=== PATIENT | female | born 1985 | race Caucasian/White ===

== ENCOUNTER 2020-05-31 17:16 | Outpatient (REF) | payer OTHER, SELFPAY | END 2020-05-31 17:17 | disposition home or self-care (01) | LOC: HO.LAB 17:16 | PROVIDERS: Visit Provider Internal Medicine | DX: Z20.828 Contact with and (suspected) exposure to other viral communicable diseases (principal) | CPT/HCPCS: C9803; U0003 ==

== ENCOUNTER 2020-11-02 09:24 | Outpatient (REF) | payer OTHER, SELFPAY ==
--- NOTE | ~2020-11-02 | FL_ITS ---
EXAMINATION: XR UPPER GI SERIES CLINICAL INFORMATION: Unspecified abdominal pain. COMPARISON: None FLUOROSCOPY TIME: 1.4 minutes TECHNIQUE: Swallowing examination of the cervical esophagus was performed in the lateral position with self administration of thick, high density barium. Following the self administration of effervescent granules, thoracic esophagography was performed with the patient in upright and recumbent positions with thin barium. A 12.7 mm barium tablet was also administered. A double contrast examination of the stomach and duodenum was performed. Fluoroscopic evaluation was performed and multiple spot images were obtained. A dedicated prone PA view of the abdomen was obtained. DOSE AREA PRODUCT: 21.56 uGy-m2 (microgray-meter squared) FINDINGS: Pharynx and cervical esophagus: Examination demonstrates normal motility without stricturing, diverticula, or obstruction. No significant pooling of contrast material in the valleculae or piriform sinuses. No cricopharyngeal abnormalities are noted. The pharynx and cervical spine are normal in appearance. Thoracic esophagus: Normal esophageal motility was observed during swallowing. There was no evidence of esophageal mass, ulceration, or stricture. No hiatal hernia was noted. There is no evidence of gastroesophageal reflux demonstrated on this exam, neither spontaneous nor with the patient performing a Valsalva maneuver. Barium pill was noted to pass through the esophagus and into the lumen of the stomach without delay. Stomach and duodenum: Barium flows easily through a normal appearing stomach, duodenal bulb, and sweep. No gastric or duodenal ulcers are identified. No findings of inflammation. Contrast material extends into the jejunum and ileum on the dedicated PA view without appreciable focal thickening or abnormal fold caliber. Stomach is normal in appearance on this view. Lung bases are clear. FL/FL upper GI series IMPRESSION: Normal upper GI series without appreciable abnormalities in the esophagus, stomach, and small bowel. No gastric ulcers are identified.
[2020-11-02 10:18] LABS: MANUAL DIFF FLAG NO
[2020-11-02 10:41] LABS: Basophils Percent Auto 0.4 % (0-2); Eosinophils Absolute Auto 0.2 X10*3/uL (0.0-0.4); Eosinophils Percent Auto 2.8 % (0-4); Hematocrit 38.6 % (37-47); Hemoglobin 12.8 g/dl (12.0-16.0); Imm Gran Abs Auto 0.01 X10*3/uL (0.00-0.03); Imm Gran Pct Auto 0.2 % (0.0-0.4); Lymphocytes Absolute Auto 2.2 X10*3/uL (1.2-4.9); Lymphocytes Percent Auto 41.7 % (20-40); Mean Corpuscular HGB Conc 33.2 g/dl (31.0-35.0); Mean Corpuscular Volume 90.4 fL (80-98); Mean Platelet Volume 11.4 fL (9.4-12.3); Monocytes Absolute Auto 0.5 X10*3/uL (0.1-1.2); Neutrophils Absolute Auto 2.4 X10*3/uL (2.0-8.3); Neutrophils Percent Auto 44.9 % (45-73); Platelet Count 208 X10*3/uL (160-400); Red Blood Count 4.27 X10*6/uL (4.20-5.50); Red Cell Distribution Width 12.1 % (11.0-16.0); White Blood Count 5.3 X10*3/uL (4.8-10.8)
[2020-11-02 10:51] LABS: Alanine Aminotransferase 11 U/L (0-31); Albumin Level 4.3 g/dL (3.5-5.0); Alkaline Phosphatase 55 U/L (39-117); Anion Gap 12 (12-20); Aspartate Amino Transferase 13 U/L (5-31); Bilirubin Total 0.9 mg/dL (0.0-1.0); Blood Urea Nitrogen 14 mg/dL (9-16); Calcium 9.1 mg/dL (8.4-10.2); Carbon Dioxide 24 mmol/L (22-29); Chloride 107 mmol/L (96-108); Cholesterol 139 mg/dL; Estimated Glomerular Filt Rate > 60; Glucose Fasting 99 mg/dL (60-99); HDL Cholesterol 43 mg/dL; LDL Cholesterol Calculated 86 mg/dl; Sodium 139 mmol/L (135-145); Triglycerides 50 mg/dL
[2020-11-02 11:14] LABS: Thyroid Stimulating Hormone 5.19 uIU/mL (0.32-4.0)
== END 2020-11-02 09:25 | disposition home or self-care (01) ==
LOC: HO.XRAY 09:24
PROVIDERS: PCP Internal Medicine; Visit Provider Internal Medicine
DX: R10.9 Unspecified abdominal pain (principal); E66.9 Obesity, unspecified
CPT/HCPCS: 36415; 74240; 80053; 80061; 84443; 85025

== ENCOUNTER → 2020-11-30 11:48 | Outpatient (BNVA) | payer OTHER, SELFPAY | PROVIDERS: PCP Internal Medicine; Visit Provider Dietitian, Registered | DX: E66.9 Obesity, unspecified (principal); Z68.31 Body mass index [BMI] 31.0-31.9, adult | CPT/HCPCS: 97802 ==

== ENCOUNTER → 2020-12-06 13:03 | Outpatient (BNVA) | payer OTHER, SELFPAY | PROVIDERS: PCP Internal Medicine; Referring Provider Internal Medicine; Visit Provider Nurse Practitioner ==

== ENCOUNTER 2020-12-19 08:38 | Outpatient (REF) | payer OTHER, SELFPAY ==
--- NOTE | ~2020-12-19 | US_ITS ---
EXAMINATION: US ABDOMEN COMPLETE CLINICAL INFORMATION: Epigastric pain. COMPARISON: None TECHNIQUE: Real-time imaging of the abdominal viscera. FINDINGS: PANCREAS: Normal. ABDOMINAL AORTA: The proximal, mid, and distal segments are normal in caliber. INFERIOR VENA CAVA: Visualized portions are normal. LIVER: Normal. The liver is normal in size. The liver contour is normal. Parenchymal echogenicity is normal. No focal hepatic lesion. There is no intrahepatic biliary duct dilatation seen. GALLBLADDER: The gallbladder is physiologically distended without evidence of stones, sludge, polyps, wall thickening or pericholecystic fluid. The veterinary technologist reports the patient is tender over the gallbladder. COMMON BILE DUCT: Normal in caliber measuring 0.54 cm in diameter. RIGHT KIDNEY: Normal. No hydronephrosis. No renal calculi or focal parenchymal lesions. The kidney measures 11.4 cm in maximum dimension. LEFT KIDNEY: There is a 3 x 4 mm echogenic density with twinkle artifact in the lower pole suggestive of a stone. No hydronephrosis or focal parenchymal lesions. The kidney measures 12.1 cm in maximum dimension. SPLEEN: Normal. The spleen measures 11.0 cm in maximum dimension. FREE FLUID: None. US/US abdomen complete IMPRESSION: Normal-appearing gallbladder. The veterinary technologist reports the patient is tender over the gallbladder. Left renal stone.
== END 2020-12-19 08:39 | disposition home or self-care (01) ==
LOC: HO.HMGCX 08:38
PROVIDERS: Visit Provider Nurse Practitioner
DX: R10.13 Epigastric pain (principal)
CPT/HCPCS: 76700

== ENCOUNTER 2021-01-22 10:03 | Outpatient (REF) | payer OTHER, SELFPAY ==
[2021-01-22 11:35] LABS: Folate 16.6 ng/mL (> or = 4.0); Vitamin B12 429 pg/mL (200-900)
[2021-01-22 11:42] LABS: Thyroid Stimulating Hormone 3.51 uIU/mL (0.32-4.0)
[2021-01-24 10:26] LABS: Thyroglobulin Antibodies 58 IU/mL (< or = 1); Thyroid Peroxidase Antibodies 431 IU/mL (<9)
== END 2021-01-22 10:04 | disposition home or self-care (01) ==
LOC: HO.LAB 10:03
PROVIDERS: PCP Internal Medicine; Visit Provider Internal Medicine
DX: R79.89 Other specified abnormal findings of blood chemistry (principal); Z78.9 Other specified health status
CPT/HCPCS: 36415; 82607; 82746; 84443; 86376; 86800

== ENCOUNTER → 2021-02-01 12:35 | Outpatient (BNVA) | payer OTHER, SELFPAY | PROVIDERS: PCP Internal Medicine; Visit Provider Dietitian, Registered | DX: E66.9 Obesity, unspecified (principal); Z68.30 Body mass index [BMI] 30.0-30.9, adult | CPT/HCPCS: 97803 ==

== ENCOUNTER → 2021-02-07 13:33 | Outpatient (BNVA) | payer OTHER, SELFPAY | PROVIDERS: PCP Internal Medicine; Referring Provider Internal Medicine; Visit Provider Nurse Practitioner ==

== ENCOUNTER 2021-02-14 08:33 | Outpatient (REF) | payer OTHER, SELFPAY ==
--- NOTE | ~2021-02-14 | US_ITS ---
EXAMINATION: US THYROID CLINICAL INFORMATION: Goiter. COMPARISON: None TECHNIQUE: Linear transducer dietrich-scale and color Doppler examination with attention to the region of the thyroid. FINDINGS: SIZE: Measurements of the thyroid lobes and nodules are given in sagittal, anteroposterior and transverse dimensions respectively. Right Thyroid Lobe: 3.8 x 1.6 x 1.2 cm, volume 3.8 mL. Parenchyma: The gland echotexture is homogeneous. Thyroid vascularity is normal. Left Thyroid Lobe: 3.2 x 0.8 x 1.2 cm, volume 1.6 mL. Parenchyma: The gland echotexture is homogeneous. Thyroid vascularity is normal. Isthmus: 0.4 cm in maximum AP dimension. Estimated total number of nodules greater than or equal to 1 cm: 0. Emt/Dispatcher nodules are described as follows: 1. Location: Right upper. Size: 0.2 x 0.2 x 0.1 cm, volume 0.002 mL. Nodule characteristics: Composition: Cystic(0). Echogenicity: None. Shape: Wider. Margins: Round. Echogenic Foci: None (0). ACR TI-RADS total points: 0 ACR TI-RADS category: 1 2. Location: Isthmus. Size: 0.4 x 0.3 x 0.2 cm, volume 0.01 mL. Nodule characteristics: Composition: Solid (2). Echogenicity: Very hypoechoic (3). Shape: Not taller than wide (0). Margins: Smooth (0). Echogenic Foci: None (0). ACR TI-RADS total points: 5 ACR TI-RADS category: 4 NODES: No lymphadenopathy is seen in the tissue surrounding the thyroid gland. US/US thyroid IMPRESSION: Normal thyroid gland homogeneous with 2 nodules. One nodule is cystic in the right lobe and a second nodule is subcentimeter and nonsuspicious in the isthmus. ACR TI-RADS RECOMMENDATION REFERENCE: Ultrasound-guided fine-needle aspiration, followup ultrasound, no further followup. * TR1 (0 point) and TR 2 (2 points): No FNA or followup. * TR3 (3 points): FNA if more than or equal to 2.5 cm in maximum dimension, followup ultrasound in 1, 3 and 5 years if 1.5 to 2.4 cm in maximum dimension. * TR4 (4-6 points): FNA if more than or equal to 1.5 cm in maximum dimension, followup ultrasound in 1, 2, 3 and 5 years if 1 to 1.4 cm in maximum dimension. * TR5 (more than or equal to 7 points): FNA if more than or equal to 1 cm in maximum dimension, followup ultrasound every year for 5 years if 0.5 to 0.9 cm in maximum dimension. * TR3, TR4 or TR5 nodules that are below the size threshold for followup receive no followup.
== END 2021-02-14 08:34 | disposition home or self-care (01) ==
LOC: HO.US 08:33
PROVIDERS: Visit Provider Internal Medicine
DX: E04.9 Nontoxic goiter, unspecified (principal)
CPT/HCPCS: 76536

== ENCOUNTER → 2021-02-22 11:25 | Outpatient (BNVA) | payer OTHER, SELFPAY | PROVIDERS: PCP Internal Medicine; Visit Provider Urology ==

== ENCOUNTER → 2021-03-04 12:19 | Outpatient (BNVA) | payer OTHER, SELFPAY | PROVIDERS: PCP Internal Medicine; Referring Provider Internal Medicine; Visit Provider Internal Medicine | DX: R00.1 Bradycardia, unspecified (principal); R94.6 Abnormal results of thyroid function studies | CPT/HCPCS: 93005 ==

== ENCOUNTER → 2021-03-07 08:06 | Outpatient (REF) | payer OTHER, SELFPAY ==
--- NOTE | ~2021-03-07 | NM_ITS ---
EXAMINATION: DC HEPATOBILIARY SCAN WITHOUT PHARMACY CLINICAL INFORMATION: Right upper quadrant pain COMPARISON: None TECHNIQUE: Following intravenous administration of 5 mCi of 99m technetium mebrofenin, imaging over the right upper quadrant was obtained up to 60 minutes. At 60 minutes, 8 ounces of Ensure was administered orally and further imaging was obtained up to 60 minutes. FINDINGS: There is normal hepatic uptake without focal defect. There is visualization of the gallbladder by 14 minutes and the duodenum by 24 minutes. Post oral administration of Ensure the gallbladder ejection fraction at 30 minutes is 45% and at 60 minutes is 60%. DC/DC hepatobiliary wo pharm IMPRESSION: Normal hepatic uptake. Patent cystic duct and common bile duct. The gallbladder ejection fraction is 60% at 60 minutes.
== END ==
LOC: HO.NUCMED 08:06
PROVIDERS: Visit Provider Nurse Practitioner
DX: R10.11 Right upper quadrant pain (principal)
CPT/HCPCS: 78226; A9537

== ENCOUNTER 2021-03-17 20:14 | Emergency (ER) | payer SELFPAY ==
[2021-03-17 20:21] VITALS: BP 134/61; PULSE 73; RESP 16; TEMP 36.5; O2SAT 100; BMI 29.7
[2021-03-17 21:26] VITALS: BMI 30.2
--- NOTE | 2021-03-17 21:40 | ED_ITS ---
HPI - Animal Bite General Chief Complaint: Animal Bite Stated Complaint: DOG BITE Time Seen by Provider: 03/17/21 21:32 Source: patient Mode of arrival: ambulatory Limitations: no limitations History of Present Illness HPI narrative: Patient comes to the emergency room complaining of a dog bites to the right posterior cough. Patient states that the dog's COVID Her was trying to attack her dog. 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 The patient states that the other dog financial writer mention that the dog has bitten someone else in the past, has been quarantined before. Unsure if the dog is up-to-date with immunizations. Patient states that she does not know her neighbor very well Related Data Previous Rx's Medication Instructions Recorded sertraline 25 mg tablet 25 mg PO DAILY 90 Days #90 tab 10/22/20 amoxicillin 500 mg-potassium 1 tab PO BID #13 tab 03/17/21 clavulanate 125 mg tablet (Augmentin) Allergies Allergy/AdvReac Type Severity Reaction Status Date / Time hydromorphone [From Dilaudid] AdvReac Intermediate Nausea Verified 03/04/21 12:29 Review of Systems Review of Systems: Constitutional : No Weight loss, No Fever, No Chills, No Night Sweats, No Fatigue, No Malaise ENT/Mouth : No Hearing loss, No Ear Pain, No Nasal Congestion, No Sinus Pain, No Hoarseness, No sore throat, No Rhinorrhea, No Swallowing Difficulty Eyes: No Eye Pain, No Swelling, No Redness, No Foreign Body, No Discharge, No Vision Changes Cardiovascular : No Chest Pain, No SOB, No Dyspnea on Exertion, No Orthopnea, No Edema, No Palpitations Respiratory : No Cough, No Sputum, No Wheezing, No Smoke Exposure, No Dyspnea Gastrointestinal : No Nausea, No Vomiting, No Diarrhea, No Constipation, No abdominal Pain, No Hematochezia, No Melena Genitourinary : no irregular bleeding, No Dysuria, No Urinary Frequency, No Hematuria, No Urinary Incontinence, No Urgency, No Flank Pain, No Urinary Flow Changes, No Hesitancy Musculoskeletal : No joint pain, No Myalgias, No Joint Swelling Skin : Dog bite, puncture wound to the right calf Neuro : No Weakness, No Numbness, No Paresthesias, No Loss of Consciousness, No Dizziness, No Headache Psych : No Anxiety/Panic, No Depression, No SI/HI/AH/VH, No Social Issues, Heme/Lymph: No Bruising, No Bleeding,No Lymphadenopathy Endocrine : No Polyuria, No Polydipsia, No Temperature Intolerance [facility] Past Medical History Medical History Abdominal pain Depression Elevated TSH Goiter Insomnia Obesity Renal calculi Sinus bradycardia Vegan diet Surgical History Cyst on ear Family History Family History Mother Lung cancer Mental health disorder Father Low blood pressure Family/Other Substance use disorder Social History Social History Housing: Apartment Alcohol intake: current Alcohol intake frequency: holidays/special occasions only Alcohol type: beer Patient Tobacco Use Status: Never used Tobacco e-Cigarette/Vaping Use: Never Used Second Hand Smoke Exposure: No Advance Directives: No Advance Directives Information Provided: No Patient : No service: No Current occupational status: employed Physical Exam Vital Signs: Vital Signs: Last Vital Signs Temp 97.7 F 03/17/21 20:21 Pulse 73 03/17/21 20:21 Resp 16 03/17/21 20:21 BP 134/61 03/17/21 20:21 Pulse Ox 100 03/17/21 20:21 Body Mass Index 30.2 Const: Other: Appearance: Alert. Oriented X3. No acute distress. Eyes: Pupils equal, round and reactive to light. ENT: Pharynx normal. Neck: Normal inspection. Neck supple. No lymph nodes noted. No crepitus CVS: Normal heart rate and rhythm. Pulses normal. Normal S1 and S2 Respiratory: No respiratory distress. Breath sounds normal. No Wheezing. No rales Abdomen: Soft and nontender. No rigidity. No distention. good BS x4 Skin: Skin warm and dry. Normal skin color. Normal skin turgor. Extremities: No lower extremity edema. One puncture wound and ecchymosis to the right calf, no signs of cellulitis Neuro: Oriented X 3. No motor deficit. No sensory deficit. Moving all extermities. No slurred speech. Course Course Course Narrative: I discussed with the patient that she needs she does not know her neighbor very well, unclear if the dog is fully immunized, I would recommend to go ahead and do the immunization series for rabies. At this time, patient states that she will try to call the police and see if they could capture the dog and having quarantine. Patient will get a Tdap and 1st dose of Augmentin Patient states that she called the police, the police informed her that they went to check the paperwork from the dog, seems that the dog is fully immunized. Patient will confirm this at the police stations tomorrow. At this time, patient declined the rabies immunization series Discharge Plan Discharge Clinical Impression: Dog bite Qualifiers: Encounter type: initial encounter Qualified Code(s): W54.0XXA - Bitten by dog, initial encounter Patient Disposition: Home, Self-Care Instructions: Animal Bite (ED) Additional Instructions: Please follow-up with your primary care physician tomorrow. If you have any worsening or new symptoms, please return to the emergency room or call 911 Prescriptions: New amoxicillin-pot clavulanate [Augmentin] 500-125 mg tablet 1 tab PO BID Qty: 13 RF: 0 No Action sertraline 25 mg tablet 25 mg PO DAILY 90 Days Qty: 90 RF: 1
[2021-03-17] MEDS: Amoxicillin/Potassium Clav 875 MG TABLET PO (21:55)
[2021-03-17] MEDS: Diphth,Pertus(ACell),Tet Adult 0.5 ML SYRINGE IM (21:55)
== END 2021-03-17 23:18 | disposition home or self-care (01) ==
PROVIDERS: Emergency Provider Emergency Medicine; PCP Internal Medicine
DX: S80.871A Other superficial bite, right lower leg, initial encounter (principal); M79.661 Pain in right lower leg; W54.0XXA Bitten by dog, initial encounter; Y93.9 Activity, unspecified; Y92.9 Unspecified place or not applicable; Y99.9 Unspecified external cause status; Z79.899 Other long term (current) drug therapy
CPT/HCPCS: 90471; 90715; 99284

== ENCOUNTER → 2021-05-03 12:25 | Outpatient (BNVA) | payer OTHER, SELFPAY | PROVIDERS: PCP Internal Medicine; Visit Provider Dietitian, Registered | DX: E66.9 Obesity, unspecified (principal) | CPT/HCPCS: 97803 ==

== ENCOUNTER → 2021-08-06 14:04 | Outpatient (BNVA) | payer OTHER, SELFPAY | PROVIDERS: PCP Internal Medicine; Visit Provider Dietitian, Registered | DX: E66.9 Obesity, unspecified (principal); Z68.31 Body mass index [BMI] 31.0-31.9, adult | CPT/HCPCS: 97803 ==

== ENCOUNTER 2021-12-20 14:56 | Outpatient (REF) | payer OTHER, SELFPAY ==
[2021-12-20 15:21] LABS: MANUAL DIFF FLAG NO
[2021-12-20 15:32] LABS: Basophils Percent Auto 0.4 % (0-2); Eosinophils Absolute Auto 0.2 X10*3/uL (0.0-0.4); Hematocrit 38.4 % (37.0-47.0); Hemoglobin 12.9 g/dl (12.0-16.0); Imm Gran Abs Auto 0.01 X10*3/uL (0.00-0.03); Imm Gran Pct Auto 0.2 % (0.0-0.4); Lymphocytes Absolute Auto 1.6 X10*3/uL (1.2-4.9); Mean Corpuscular HGB Conc 33.6 g/dl (31.0-35.0); Mean Corpuscular Hemoglobin 31.4 pg (27.0-33.0); Mean Corpuscular Volume 93.4 fL (80.0-98.0); Mean Platelet Volume 11.9 fL (9.4-12.3); Monocytes Absolute Auto 0.5 X10*3/uL (0.1-1.2); Monocytes Percent Auto 9.6 % (2-11); Neutrophils Absolute Auto 2.7 x10*3/uL (2.0-8.3); Neutrophils Percent Auto 54.8 % (45-73); Platelet Count 161 X10*3/uL (160-400); Red Blood Count 4.11 X10*6/uL (4.20-5.50); Red Cell Distribution Width 12.6 % (11.0-16.0)
[2021-12-20 15:56] LABS: Alanine Aminotransferase 15 U/L (0-31); Albumin Level 4.2 g/dL (3.5-5.0); Alkaline Phosphatase 50 U/L (39-117); Anion Gap 11 (12-20); Aspartate Amino Transferase 15 U/L (5-31); Bilirubin Total 1.3 mg/dL (0.0-1.0); Blood Urea Nitrogen 10 mg/dL (9-16); Calcium 9.1 mg/dL (8.4-10.2); Carbon Dioxide 23 mmol/L (22-29); Chloride 108 mmol/L (96-108); Cholesterol 134 mg/dL; Estimated Glomerular Filt Rate > 60; Glucose Fasting 93 mg/dL (60-99); HDL Cholesterol 45 mg/dL; LDL Cholesterol Calculated 80 mg/dl; Potassium 4.4 mmol/L (3.3-5.1); Sodium 138 mmol/L (135-145); Total Protein 6.8 g/dL (6.5-8.0); Triglycerides 48 mg/dL
[2021-12-20 16:17] LABS: TSH reflex Free T4 2.45 uIU/mL (0.32-4.0)
[2021-12-20 16:30] LABS: Folate > 20.0 ng/mL (> or = 4.0); Vitamin B12 667 pg/mL (200-900)
[2021-12-25 12:32] LABS: Vitamin D 25-OH, D2 6 ng/mL; Vitamin D 25-OH, D3 14 ng/mL; Vitamin D 25-OH, Total 20 ng/mL (30-100)
== END 2021-12-20 14:57 | disposition home or self-care (01) ==
LOC: HO.LAB 14:56
PROVIDERS: Visit Provider Nurse Practitioner Family
DX: Z00.00 Encounter for general adult medical examination without abnormal findings (principal); E04.9 Nontoxic goiter, unspecified; E78.00 Pure hypercholesterolemia, unspecified; I10 Essential (primary) hypertension; Z78.9 Other specified health status
CPT/HCPCS: 36415; 80053; 80061; 82306; 82607; 82746; 84443; 85025

== ENCOUNTER 2022-01-01 15:18 | Outpatient (REF) | payer OTHER, SELFPAY ==
--- NOTE | ~2022-01-01 | US_ITS ---
EXAMINATION: US RETROPERITONEAL LIMITED (RENAL ONLY) CLINICAL INFORMATION: Calculus of kidney. COMPARISON: Ultrasound abdomen complete dated 12/19/2020. TECHNIQUE: Real-time imaging of the kidneys. FINDINGS: RIGHT KIDNEY: 11.8 x 4.1 x 4.9 cm (SAG x AP x TRV). The kidney is normal in size, contour, and echogenicity. Renal cortical thickness is normal. No calculi or focal parenchymal lesions. No hydronephrosis. LEFT KIDNEY: 12.4 x 5.5 x 5.5 cm (SAG x AP x TRV). The kidney is normal in size, contour, and echogenicity. Renal cortical thickness is normal. No focal parenchymal lesions or hydronephrosis. There is an echogenic stone in lower pole measuring 0.4 x 0.3 x 0.6 cm. US/US renal BI IMPRESSION: Non obstructive echogenic stone lower pole left kidney. No hydronephrosis seen. The right kidney is unremarkable.
== END 2022-01-01 15:19 | disposition home or self-care (01) ==
LOC: HO.HMGCX 15:18
PROVIDERS: PCP Internal Medicine; Visit Provider Urology
DX: N20.0 Calculus of kidney (principal)
CPT/HCPCS: 76775

== ENCOUNTER → 2022-02-04 13:59 | Outpatient (BNVA) | payer OTHER, SELFPAY | PROVIDERS: PCP Internal Medicine; Visit Provider Dietitian, Registered | DX: E66.9 Obesity, unspecified (principal) | CPT/HCPCS: 97803 ==

== ENCOUNTER → 2022-02-27 13:13 | Outpatient (REF) | payer OTHER, SELFPAY ==
--- NOTE | 2022-02-27 13:19 | HM_ITS ---
* Total monitoring time 3 days and 11 hours. * Underlying rhythm is sinus. Average rate 71/Min. Range 40 to 144/Min. * Rare supraventricular and ventricular ectopy with minimal burden. * Shortness of breath in patient diary associated with mild sinus tachycardia. Chest discomfort associated with sinus rhythm. MTDD
--- NOTE | 2022-02-27 13:19 | CA_ITS ---
Transthoracic Echocardiogram Patient (Last, First, Middle): Lenora Chang Elizabeth Gender: Female Date of : 1985 Age: 36 Procedure Date: 02/27/2022 Procedure Type: Transthoracic Echocardiogram Location: OP Height: 172.72 cm Weight: 88.45 kg BSA: 2.02 m2 Heart Rate: bpm BP: 120 / 70 mmHg Maintenance Mechanic Telephone: ZHAO Referring MD: Alexei Eduardo MD Bag Loader: Shan Walden MD Symptoms: R00.1 - Bradycardia, unspecified Study Quality: Adequate ECG Rhythm: Sinus Conclusions: - Essentially normal study Findings Left Ventricle Normal left ventricular size, thickness, and systolic function. The visually estimated ejection fraction is between 60-65%. Diastolic function is normal for age. Right Ventricle Normal right ventricular cavity size and systolic function. Atria Both atria are normal in size. There is no evidence of interatrial shunt. Aortic Valve Normal aortic valve structure and function. There is no aortic valve stenosis. There is no aortic valve regurgitation. Mitral Valve Normal mitral valve structure and function. There is trace mitral valve regurgitation. There is no mitral valve stenosis. Pulmonic Valve The pulmonic valve is likely normal. Tricuspid Valve Normal tricuspid valve structure. Tricuspid regurgitation envelope is inadequate for calculation of right ventricular systolic pressure. Normal right atrial pressure. Great Vessels All visible segments of the aorta are normal in size. The pulmonary artery was not well visualized. Venous The inferior vena cava is normal in size and collapses greater than 50% with inspiration. Pericardium/Pleural There is no evidence of pericardial effusion. Prior Study Comparison No prior study available for comparison. Measurements 2D Linear Measurements IVSd: 0.74 0.6-0.9/0.6-1.0 cm LVIDd: 4.83 3.9-5.3/4.2-5.9 cm LVIDd Index: 2.39 2.4-3.2/2.2-3.1 cm/m2 LVIDs: 3.26 2.0-3.6 cm LVPWd: 0.87 0.7-1.1 cm LA Diam: 3.40 2.7-3.8/3.0-4.0 cm LAIDs Index: 1.68 1.5-2.3 cm/m2 LV Mass: 160.98 67-162/88-224 g LV Mass Index: 79.69 43-95/49-115 g/m2 LVOT Diam: 1.90 3.0+(-)1.3 cm 2D Systolic Function EF 4C: 58.40 >55% EF 2C: 63.30 >55% EF BiP: 61.10 >55% Mitral Valve MV Pk E: 0.89 MV PK A: 0.75 MV Decel Time: 260.00 E/A: 1.20 E'Lateral: 14.90 E'Medial: 11.00 E/E' Med: 8.10 E/E' Lat: 6.00 PHT: 76.00 MVA PHT: 2.89 Decel [place]: 3.41 Aortic Valve AoV Pk Edgardo: 1.44 AoV Mn Edgardo: 1.07 AoV VTI: 0.36 AoV Pk Grad: 8.00 Aov Mn Grad: 5.00 ANTOINETTE Cont.VTI: 2.15 LVOT LVOT Pk Edgardo: 1.21 LVOT Mn Edgardo: 0.80 LVOT VTI: 0.28 LVOT Pk Grad: 6.00 LVOT Mn Grad: 3.00 LVOT Diam: 1.90 LVOT Area: 2.84 Diastolic Function MV Pk E: 0.89 MV Pk A: 0.75 E/A: 1.20 E'Medial: 11.00 E/E' Med: 8.10 E' Laterial: 14.90 E/E' Lat: 6.00 Right Ventricle TAPSE (mm): 22.40 TVS' Edgardo: 13.40 Tricuspid Valve RA Press: 3.00 Great Vessels Aorta Sinus of Valsalva: 2.89 2.0-3.[address] [place]: 2.23 1.7-3.4 cm Ao Asc: 2.50 2.1-3.4 cm Updated in Other Vendor System with Status of Final Shan Waledn MD electronically signed on 02/28/2022 2:43:56 PM with status of Final
== END ==
LOC: HO.CARD 13:13
PROVIDERS: Visit Provider Internal Medicine
DX: R00.1 Bradycardia, unspecified (principal)
CPT/HCPCS: 93242; 93306

== ENCOUNTER → 2022-07-24 14:45 | Outpatient (BNVA) | payer OTHER, SELFPAY | PROVIDERS: PCP Internal Medicine; Visit Provider Internal Medicine Endocrinology, Diabetes & Metabolism | DX: E06.3 Autoimmune thyroiditis (principal) ==

== ENCOUNTER 2022-08-05 10:04 | Outpatient (REF) | payer OTHER, SELFPAY ==
[2022-08-06 09:22] LABS: CT PCR NOT DETECTED (Not Detect.); NG PCR NOT DETECTED (Not Detect.)
[2022-08-06 11:32] LABS: BV Int Neg Control Negative (Negative); BV Int Pos Control Positive (Positive)
[2022-08-11 03:19] LABS: HPV 16 RNA NOT DETECTED (NOT DETECTED); HPV mRNA E6/E7 rflx Detected (Not Detected)
== END 2022-08-05 10:05 | disposition home or self-care (01) ==
LOC: HO.LNP 10:04
PROVIDERS: PCP Internal Medicine; Visit Provider Advanced Practice Midwife
DX: Z01.419 Encounter for gynecological examination (general) (routine) without abnormal findings (principal); Z11.51 Encounter for screening for human papillomavirus (HPV)
CPT/HCPCS: 0353U; 87480; 87510; 87624; 87625; 87660; 88142

== ENCOUNTER 2022-08-20 17:07 | Emergency (ER) | payer OTHER, SELFPAY ==
[2022-08-20 17:26] VITALS: BP 116/65; PULSE 56; RESP 18; TEMP 36.1; O2SAT 99; BMI 30.4
--- NOTE | 2022-08-20 17:26 | ED_ITS ---
HPI - Back Pain/Injury General Chief Complaint: Back Pain/Injury <Vandana Frey NP - Last Filed: 08/20/22 17:29> Stated Complaint: back injury <Vandana Frey NP - Last Filed: 08/20/22 17:29> Time Seen by Provider: 08/20/22 20:51 <Vandana Frey NP - Last Filed: 08/20/22 17:29> Source: patient <Jaguar Eddy MD - Last Filed: 08/20/22 23:51> Mode of arrival: ambulatory <Jaguar Eddy MD - Last Filed: 08/20/22 23:51> Limitations: no limitations <Jaguar Eddy MD - Last Filed: 08/20/22 23:51> History of Present Illness HPI Narrative: 36-year-old female who presents emergency department for evaluation right lower back pain. Patient states that she always has a low level or back pain in over the past 2-3 days she has had increased back pain. She states that prior to coming to the emergency department she was standing and trying to put on pants when she developed sudden onset of severe pain in her right back. She states the pain radiated radiated to her right hip and right knee. She states that she was unable to straighten up and moves secondary to the severity of her pain. She states that since onset the pain is been a constant, spasm like pain which is greater than 10/10. She denied numbness or weakness of her lower ex tremities. She denied loss of bowel or bladder control. She states she took Advil 600 mg orally and oxycodone with no relief of her pain. She states she is having difficulty walking secondary to the severity of her pain. She denied loss of bowel or bladder control. She denied being ill in any way prior to onset of her back pain, she denied fever, chills, rhinorrhea, sore throat, cough, chest pain, shortness of breath. She does not use injection drugs. <Jaguar Eddy MD - Last Filed: 08/20/22 23:51> Related Data Home Medications: Previous Rx's Medication Instructions Recorded cholecalciferol (vitamin D3) 50 25 mcg PO DAILY 90 days #45 tabs 05/28/22 mcg (2,000 unit) tablet levothyroxine 50 mcg tablet 50 mcg PO DAILY #30 tabs 07/24/22 (Synthroid) desogestrel-e.estradiol 0.15 1 tab PO DAILY #84 tabs 08/05/22 mg-0.02 mg(21)/e.estrad 0.01 mg(5) tablet metronidazole 0.75 % (37.5 mg/5 1 appful vaginal BEDTIME 5 days 08/08/22 gram) vaginal gel #70 grams cyclobenzaprine 5 mg tablet 5 mg PO TID PRN muscle spasm or 08/20/22 pain #14 tabs morphine 15 mg immediate release 15 mg PO Q4-6H PRN pain #14 tabs 08/20/22 tablet <Vandana Frey NP - Last Filed: 08/20/22 17:29> Allergies/Adverse Reactions: Allergies Allergy/AdvReac Type Severity Reaction Status Date / Time hydromorphone [From Dilaudid] AdvReac Intermediate Nausea Verified 08/20/22 17:29 <Vandana Frey NP - Last Filed: 08/20/22 17:29> Review of Systems Review of Systems: Yes all other systems are reviewed and are negative <Jaguar Eddy MD - Last Filed: 08/20/22 23:51> [facility] Past Medical History [facility] Narrative: Social history: The patient denies tobacco use. She occasionally drinks alcohol. She states she does use marijuana the sleep, she denies injection drug use. <Jaguar Eddy MD - Last Filed: 08/20/22 23:51> Medical History: Medical History Abdominal pain Depression Elevated TSH Goiter Insomnia Obesity Renal calculi Sinus bradycardia Vegan diet <Vandana Frey NP - Last Filed: 08/20/22 17:29> Surgical History: Surgical History Cyst on ear <Vandana Frey NP - Last Filed: 08/20/22 17:29> Family History Family History: Family History Mother Lung cancer Mental health disorder Father Low blood pressure Family/Other Substance use disorder <Vandana Frey NP - Last Filed: 08/20/22 17:29> Social History Social History: Social History Housing: Apartment Alcohol intake: current Alcohol intake frequency: does not drink Alcohol type: beer Patient Tobacco Use Status: Never used Tobacco Smoked in Last 30 Days: No e-Cigarette/Vaping Use: Never Used Second Hand Smoke Exposure: No Advance Directives: No Advance Directives Information Provided: No Patient : No service: No Current occupational status: employed Cognitive needs: No Hearing needs: No Vision needs: No <Vandana Frey NP - Last Filed: 08/20/22 17:29> Physical Exam Vital Signs: Vital Signs: Last Vital Signs Temp 98.6 F 08/20/22 21:51 Pulse 50 08/20/22 21:51 Resp 18 08/20/22 21:51 BP 137/74 08/20/22 21:51 Pulse Ox 100 08/20/22 21:51 O2 Del Method 08/20/22 21:51 BMI result Body Mass Index 30.4 <Vandana Frey NP - Last Filed: 08/20/22 17:29> Vital Signs: Last Vital Signs Temp 98.6 F 08/20/22 21:51 Pulse 50 08/20/22 21:51 Resp 18 08/20/22 21:51 BP 137/74 08/20/22 21:51 Pulse Ox 100 08/20/22 21:51 O2 Del Method 08/20/22 21:51 BMI result Body Mass Index 30.4 <Jaguar Eddy MD - Last Filed: 08/20/22 23:51> Const: Other: Awake, alert, female patient, very pleasant and cooperative, answers all questions appropriately, does appear to be in distress secondary to her back pain the patient is not able to sit up removed secondary to the severity of her pain. <Jaguar Eddy MD - Last Filed: 08/20/22 23:51> HEENT: Head: Yes normal to inspection, Yes normocephalic and Yes atraumatic <Jaguar Eddy MD - Last Filed: 08/20/22 23:51> Ears: external ears normal <Jaguar Eddy MD - Last Filed: 08/20/22 23:51> General nose exam: Normal external nose present <MD Ben Hankins Last Filed: 08/20/22 23:51> Face and sinus: Yes normal facial exam <MD Ben Hankins Last Filed: 08/20/22 23:51> Mouth: Normal oral and palatal mucosa present <Jaguar Eddy MD - Last Filed: 08/20/22 23:51> Throat: Yes posterior oropharynx normal <MD Ben Hankins Last Filed: 08/20/22 23:51> Eyes: General: appearance normal, both eyes and all related structures <Jaguar Eddy MD - Last Filed: 08/20/22 23:51> Pupils: Equal, round and reactive pupils present <Jaguar Eddy MD - Last Filed: 08/20/22 23:51> Neck: Neck: Yes normal visual inspection, Yes no lymphadenopathy, Yes trachea midline and Yes supple <MD Ben Hankins Last Filed: 08/20/22 23:51> Chest: Chest palpation & inspection: normal inspection of the chest and normal palpation of entire chest wall <MD Ben Hankins Last Filed: 08/20/22 23:51> Resp: Effort & Inspection: normal respiratory effort and able to speak in complete sentences <MD Ben Hankins Last Filed: 08/20/22 23:51> Auscultation: clear to auscultation bilaterally <MD Ben Hankins Last Filed: 08/20/22 23:51> Cardio: Rate: regular rate <MD Ben Hankins Last Filed: 08/20/22 23:51> Rhythm: regular rhythm <MD Ben Hankins Last Filed: 08/20/22 23:51> Heart sounds: S1 normal heart sound present, S2 normal heart sound present and no murmurs <MD Ben Hankins Last Filed: 08/20/22 23:51> GI: Inspection: Yes normal to inspection <Jaguar Eddy MD - Last Filed: 08/20/22 23:51> Palpation (GI): Soft to palpation, nontender and no guarding <Jaguar Eddy MD - Last Filed: 08/20/22 23:51> Auscultation: normal bowel sounds <Jaguar Eddy MD - Last Filed: 08/20/22 23:51> Back/Spine/Pelvis: Other: Patient has no point tenderness with palpation over vertebrae, she has significant tenderness palpation over the lumbar sacral paraspinal muscles on the right, she is not able to lift her legs off the bed secondary to pain but has negative straight leg raises bilaterally, <Jaguar Eddy MD - Last Filed: 08/20/22 23:51> Skin: General skin exam: no rashes or lesions noted <Jaguar Eddy MD - Last Filed: 08/20/22 23:51> Neuro: Cranial nerves: Yes CN's II-XII intact bilaterally and Yes Equal, round and reactive pupils present <Jaguar Eddy MD - Last Filed: 08/20/22 23:51> Cognition (Neuro): normal cognition <Jaguar Eddy MD - Last Filed: 08/20/22 23:51> Motor exam (neuro): 5/5 motor strength present throughout <Jaguar Eddy MD - Last Filed: 08/20/22 23:51> Extrem: General: Yes normal to inspection <Jaguar Eddy MD - Last Filed: 08/20/22 23:51> Psych: Appearance: grossly normal <Jaguar Eddy MD - Last Filed: 08/20/22 23:51> Speech and movement: Normal speech and movement present <Jaguar Eddy MD - Last Filed: 08/20/22 23:51> Affect: normal affect <Jaguar Eddy MD - Last Filed: 08/20/22 23:51> Attitude: cooperative <Jaguar Eddy MD - Last Filed: 08/20/22 23:51> Course Course Course Narrative: This is a rapid medical exam. Deferred additional HPI, ROS, PE to primary provider. 36 yo female with past medical history of hypothyroidism, scoliosis here with right lower back with radiation to down the right leg with spasm which began when putting on her pants, has had some mild pain for the last few weeks. Took 3 tylenol, 1 oxycodone [employer]. Patient arrives in wheelchair and reports she cannot ambulate d/t pain. <Vandana Frey NP - Last Filed: 08/20/22 17:29> Medications Administered Discontinued Medications Generic Name Dose Route Start Last Admin Trade Name Freq PRN Reason Stop Dose Admin Cyclobenzaprine HCl 10 mg 08/20/22 21:07 08/20/22 21:26 Cyclobenzaprine Hcl 10 Mg Tablet PO 08/20/22 21:08 10 mg ONCE STA Administration Ketorolac Tromethamine 15 mg 08/20/22 21:07 08/20/22 21:25 Ketorolac Tromethamine 15 Mg/Ml Vial IVPUSH 08/20/22 21:08 15 mg ONCE STA Administration Morphine Sulfate 4 mg 08/20/22 21:07 08/20/22 21:25 Morphine Sulfate 4 Mg/Ml Cartridge IVPUSH 08/20/22 21:08 4 mg ONCE STA Administration Protocol Morphine Sulfate 4 mg 08/20/22 22:46 08/20/22 22:51 Morphine Sulfate 4 Mg/Ml Cartridge IVPUSH 08/20/22 22:47 4 mg ONCE STA Administration Protocol <Vandana Frey NP - Last Filed: 08/20/22 17:29> Medications Administered Discontinued Medications Generic Name Dose Route Start Last Admin Trade Name Freq PRN Reason Stop Dose Admin Cyclobenzaprine HCl 10 mg 08/20/22 21:07 08/20/22 21:26 Cyclobenzaprine Hcl 10 Mg Tablet PO 08/20/22 21:08 10 mg ONCE STA Administration Ketorolac Tromethamine 15 mg 08/20/22 21:07 08/20/22 21:25 Ketorolac Tromethamine 15 Mg/Ml Vial IVPUSH 08/20/22 21:08 15 mg ONCE STA Administration Morphine Sulfate 4 mg 08/20/22 21:07 08/20/22 21:25 Morphine Sulfate 4 Mg/Ml Cartridge IVPUSH 08/20/22 21:08 4 mg ONCE STA Administration Protocol Morphine Sulfate 4 mg 08/20/22 22:46 08/20/22 22:51 Morphine Sulfate 4 Mg/Ml Cartridge IVPUSH 08/20/22 22:47 4 mg ONCE STA Administration Protocol <Jaguar Eddy MD - Last Filed: 08/20/22 23:51> Medical Decision Making Medical Decision Making MDM Narrative: 36-year-old female who presents emergency department for evaluation of severe right lower back pain radiating down to her right knee which occurred while she was standing and trying to put on her pants. Patient does have a history of lower back pain but she states that today's pain is much more severe to the point where she is not able to walk. The patient's examination did reveal significant tenderness palpation of the paraspinal muscles in the lumbar sacral area on the right with no point vertebral tenderness. Patient has had no systemic illnesses and does not use injection drugs. Patient's findings are consistent with a muscle spasm with radiculopathy. I ordered morphine 4 mg IV, Toradol 15 mg IV and Flexeril 10 mg orally. The goal will be to try to get the patient's pain down to tolerable level so she will be discharged home with oral medications 2343: The patient required a 2nd dose of morphine 4 mg IV with improvement of her pain. She states she is feeling better and wants to be discharged home. The patient was advised to take ibuprofen and Tylenol for pain and for pain not relieved by these 2 medications she was prescribed morphine. She is also prescribe cyclobenzaprine. Patient was given a work note. The patient was given printed and verbal instructions and discharged home. <Jaguar Eddy MD - Last Filed: 08/20/22 23:51> Differential Diagnosis Differential diagnosis includes was not limited to disc disease, sciatica, musculoskeletal spasm, radiculopathy, infectious process <Jaguar Eddy MD - Last Filed: 08/20/22 23:51> Independent Historian Clinical information obtained from an independent historian. History obtained from or confirmed by: Friend <Jaguar Eddy MD - Last Filed: 08/20/22 23:51> Discharge Plan Discharge Clinical Impression: Acute lumbar radiculopathy Lumbar back sprain Qualifiers: Encounter type: initial encounter Qualified Code(s): S33.5XXA - Sprain of ligaments of lumbar spine, initial encounter <Vandana Frey NP - Last Filed: 08/20/22 17:29> Patient Disposition: Home, Self-Care <Vandana Frey NP - Last Filed: 08/20/22 17:29> Instructions: Lumbar Radiculopathy (ED) <Vandana Frey NP - Last Filed: 08/20/22 17:29> Additional Instructions: Back Pain Discharge Instructions: Take ibuprofen 200 mg pills, 3 pills every 6 hours as needed for pain. Take Tylenol (acetaminophen) 2 pills every 4-6 hours as needed for pain. For pain not relieved by ibuprofen or Tylenol take morphine 15 mg pills, 1 pill every 4 hours as needed for pain. This medication will make you sleepy, do not drive or work while taking this medication. Morphine is a narcotic medication and can be addicting. If you are concerned about addiction you can ask the pharmacist for less pills or do not get this prescription filled. Take Flexeril (cyclobenzaprine) 5 mg pills, 1 pill every 8 hours as needed for pain or muscle spasm. This is a prescription medication. This medication will make you sleepy, therefore do not drive or work while taking this medication. Apply ice for 15 minutes to the area that hurts on your back, then apply a heating a pad on low for 15 minutes. Do this 4-6 times a day to help reduce the pain in your back. Continue with normal activities as tolerated since staying in bed and not moving around will make your pain worse. You can also try over the counter lidocaine patches as directed on the box to help with the pain. Please return to the Emergency Department or see your doctor immediately if your symptoms get worse or if you develop any new symptoms that are concerning you. Follow up with your doctor in 2 day. Please read the other printed discharge instructions on back pain. Your please see the work note <Vandana Frey NP - Last Filed: 08/20/22 17:29> Prescriptions: New morphine 15 mg tablet 15 mg PO Q4-6H PRN (Reason: pain) Qty: 14 0RF Rx Instructions: Patient may request partial fill; Partial Fill upon patient request. cyclobenzaprine 5 mg tablet 5 mg PO TID PRN (Reason: muscle spasm or pain) Qty: 14 0RF No Action cholecalciferol (vitamin D3) 50 mcg (2,000 unit) tablet 25 mcg PO DAILY 90 Days Qty: 45 1RF metronidazole 0.75 % (37.5mg/5 gram) gel 1 appful vaginal BEDTIME 5 Days Qty: 70 0RF levothyroxine [Synthroid] 50 mcg tablet 50 mcg PO DAILY Qty: 30 5RF desog-e.estradiol/e.estradiol 0.15-0.02 mgx21 /0.01 mg x 5 tablet 1 tab PO DAILY Qty: 84 3RF <Vandana Frey NP - Last Filed: 08/20/22 17:29> Stand Alone Forms: Work/School Release <Vandana Frey NP - Last Filed: 08/20/22 17:29>
[2022-08-20] MEDS: Ketorolac Tromethamine 15 MG/ML VIAL IVPUSH (21:25)
[2022-08-20] MEDS: Morphine Sulfate 4 MG/ML CARTRIDGE IVPUSH ×2 (21:25→22:51)
[2022-08-20] MEDS: Cyclobenzaprine HCl 10 MG TABLET PO (21:26)
--- NOTE | 2022-08-20 21:34 | PC.NURSE ---
pt is tearful, Iv place in right hand, medicated for pain management per Mar. Will continue to monitor.
--- NOTE | 2022-08-20 21:35 | PC.NURSE ---
This RN took over care at 9pm. Will continue to monitor patient.
[2022-08-20 21:51] VITALS: BP 137/74; PULSE 50; RESP 18; TEMP 37; O2SAT 100
--- NOTE | 2022-08-20 22:55 | PC.NURSE ---
Medicated per Mar for pain management. Will continue to monitor.
[2022-08-20 23:48] VITALS: BP 132/74; PULSE 62; RESP 18; TEMP 36.6; O2SAT 98
== END 2022-08-21 00:38 | disposition home or self-care (01) ==
PROVIDERS: Emergency Provider Emergency Medicine Emergency Medical Services; PCP Internal Medicine
DX: M54.16 Radiculopathy, lumbar region (principal); S33.5XXA Sprain of ligaments of lumbar spine, initial encounter; X50.9XXA Other and unspecified overexertion or strenuous movements or postures, initial encounter; Y93.89 Activity, other specified; Y92.032 Bedroom in apartment as the place of occurrence of the external cause; Y99.9 Unspecified external cause status
CPT/HCPCS: 96374; 96375; 96376; 99284; J1885; J2270

== ENCOUNTER 2022-10-01 11:43 | Outpatient (REF) | payer OTHER, SELFPAY | END 2022-10-01 11:44 | disposition home or self-care (01) | LOC: HO.LNP 11:43 | PROVIDERS: PCP Internal Medicine; Visit Provider Obstetrics & Gynecology | DX: R87.612 Low grade squamous intraepithelial lesion on cytologic smear of cervix (LGSIL) (principal) | CPT/HCPCS: 57454; 81025; 88305 ==

== ENCOUNTER 2022-10-04 12:23 | Emergency (ER) | payer OTHER, SELFPAY ==
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
[2022-10-04 12:50] VITALS: BP 112/80; PULSE 56; RESP 18; TEMP 36.3; O2SAT 99; BMI 31.1
== END 2022-10-04 13:13 | disposition home or self-care (01) ==
LOC: HO.ED 13:09
PROVIDERS: Emergency Provider Emergency Medicine; PCP Internal Medicine
DX: S16.1XXA Strain of muscle, fascia and tendon at neck level, initial encounter (principal); V43.52XA Car driver injured in collision with other type car in traffic accident, initial encounter; Y93.89 Activity, other specified; Y92.410 Unspecified street and highway as the place of occurrence of the external cause; Y99.9 Unspecified external cause status
CPT/HCPCS: 99282; 99283

== ENCOUNTER → 2022-10-15 13:08 | Outpatient (BNVA) | payer OTHER, SELFPAY | PROVIDERS: PCP Internal Medicine; Visit Provider Advanced Practice Midwife | DX: Z13.89 Encounter for screening for other disorder (principal) ==

== ENCOUNTER → 2022-10-22 13:47 | Outpatient (BNVA) | payer OTHER, SELFPAY | PROVIDERS: PCP Internal Medicine; Visit Provider Obstetrics & Gynecology | DX: Z13.89 Encounter for screening for other disorder (principal) ==

== ENCOUNTER 2022-10-31 11:01 | Day surgery (SDC) | payer OTHER, SELFPAY ==
[2022-10-28 13:09] VITALS: BMI 30.8
--- NOTE | 2022-10-30 09:57 | P.CONAN_ITS ---
Documented by User: Ramonita Espinosa NP 10/30/22 09:58 HPI - Anesthesia Eval Consult details Narrative: 36yo F for LEEP,poss loop electrical excision procedure cone,post cone endocervical curettage PMFSH Active Problems Active Problems: All Active Problems (Updated 10/22/22 @ 13:53 by Steve Lacey MD) LGSIL on Pap smear of cervix (Acute) Screen for sexually transmitted diseases (Acute) Cervical cancer screening (Acute) Obesity (BMI 30.0-34.9) (Acute) Primary dysmenorrhea (Acute) Menorrhagia with regular cycle (Acute) BCP ( control pills) initiation (Acute) Women's annual routine gynecological examination (Acute) Hypovitaminosis D (Acute) Mild major depression (Acute) Polyarthralgia (Acute) Abnormal menses (Acute) Palpitations (Acute) Overweight (BMI 25.0-29.9) (Acute) Arnel's disease (Acute) Acrochordon (Acute) Physical exam (Acute) Abnormal thyroid function test (Acute) Sinus bradycardia by electrocardiogram (Acute) RUQ abdominal pain (Acute) Vegan diet (Acute) Goiter (Acute) Sinus bradycardia (Acute) Renal calculi (Acute) Peptic ulcer disease (Acute) Abdominal pain (Acute) Obesity (Acute) Depression (Acute) Insomnia (Acute) Past Medical History Medical History Abdominal pain Depression Elevated TSH Goiter Insomnia Obesity Renal calculi Sinus bradycardia Vegan diet Family History Family History Mother Lung cancer Mental health disorder Father Low blood pressure Family/Other Substance use disorder Surgical History Surgical History Cyst on ear Social History Social History Housing: Apartment Alcohol intake: current Alcohol intake frequency: does not drink Alcohol type: beer Patient Tobacco Use Status: Never used Tobacco e-Cigarette/Vaping Use: Never Used Second Hand Smoke Exposure: No Use of substances other than those prescribed or required for medical reasons: Yes Substance Use Type Other:: cbd Are you DNR?: No Advance Directives: No Advance Directives Information Provided: Yes service: No Current occupational status: employed Cognitive needs: No Hearing needs: No Vision needs: No Meds Allergies Allergy/AdvReac Type Severity Reaction Status Date / Time hydromorphone [From Dilaudid] AdvReac Intermediate Nausea Verified 10/22/22 13:52 Exam Exam Date and Time: October 30, 2022 0957 Height,Weight and Vital Signs: Height 5 ft 8 in Weight 91.994 kg Narrative Narrative: Holter 02/2022 * Total monitoring time 3 days and 11 hours. * Underlying rhythm is sinus.? Average rate 71/Min.? Range 40 to 144/Min. * Rare supraventricular and ventricular ectopy with minimal burden. * Shortness of breath in patient diary associated with mild sinus tachycardia.? Chest discomfort associated with sinus rhythm. ECHO 02/2022 Nml Study Assessment and Plan Assessment Anesthesia Assessment: Chart Reviewed Documented by User: Hung Farmer MD 10/31/22 12:36 [facility] [place] Past Medical History Medical History Abdominal pain Depression Elevated TSH Goiter Insomnia Obesity Renal calculi Sinus bradycardia Vegan diet Patient : No Family History Family History Mother Lung cancer Mental health disorder Father Low blood pressure Family/Other Substance use disorder Family history of problems with anesthesia: No Surgical History Surgical History Cyst on ear History of Problems with Anesthesia: No Social History Social History Housing: Apartment Alcohol intake: current Alcohol intake frequency: does not drink Alcohol type: beer Patient Tobacco Use Status: Never used Tobacco e-Cigarette/Vaping Use: Never Used Second Hand Smoke Exposure: No Use of substances other than those prescribed or required for medical reasons: Yes Substance Use Type Other:: cbd Are you DNR?: No Advance Directives: No Advance Directives Information Provided: Yes service: No Current occupational status: employed Cognitive needs: No Hearing needs: No Vision needs: No Meds Allergies Allergy/AdvReac Type Severity Reaction Status Date / Time hydromorphone [From Dilaudid] AdvReac Intermediate Nausea Verified 10/22/22 13:52 Exam Airway Mallampati Class: II TM Dist: <=3cm Neck ROM: Full Heart: ok Lungs: ok Assessment and Plan Assessment Anesthesia Assessment: Anesthesia Plan Discussed Final Anesthetic Review Family History of Problems with Anesthesia: No History of Problems with Anesthesia: No NPO: Yes ASA Class: II Final Preanesthetic Review: No Changes in Pt Med Stat, Meds/Allgs Chart Reviewed, Consent Obtained/Reviewed and Anes Risks/Benef Reviewed Patient Risk: Low Procedure Risk: Low Anesthetic Plan Anesthetic Plan: GA and Agree w/ Assess. and Plan Disposition: Standard PACU
[2022-10-31] VITALS (10 sets, daily range): BP systolic 99–143; BP diastolic 51–86; PULSE 46–77; RESP 14–18; TEMP 36.6–37.1; O2SAT 93–100; BMI 67.7; BMI 30.7
[2022-10-31 12:03] LABS: UPreg QC Valid YES; Urine Pregnancy NEGATIVE (NEGATIVE)
--- NOTE | 2022-10-31 12:06 | MHC.SHP ---
Pre-Procedural Eval Section A Date of Service: 10/31/22 The patient is an INPATIENT: No Changes since office visit: No Cold of Flu in the past 2 weeks, No New Medical Problems, No Changes in Medication and No Patient answered all questions The History & Physical has been completed within 30 days and I have reviewed it.: Yes Section B Chief Complaint: Low grade squamous intraepithelial lesion on cytol Allergies: Allergies Allergy/AdvReac Type Severity Reaction Status Date / Time hydromorphone [From Dilaudid] AdvReac Intermediate Nausea Verified 10/22/22 13:52 Plan Diagnosis/Plan: Unchanged I have reviewed the history and physical and performed a pertinent physical examination on my patient. No changes have occurred unless specified. Time Spent With Patient Time: Total time managing care of this patient today ____ minutes.
[2022-10-31] MEDS: Lactated Ringers 1,000 ML 100 ML IVCONT (12:22)
--- NOTE | 2022-10-31 13:47 | PM.OP ---
Brief Operative Note Date of Service: 10/31/22 Pre-op diagnosis: Discrepancy between cytology (LSIL cannot rule out HGSIL) and pathology (LEON 1) Post-op diagnosis: same Procedure: LEEP cone with post cone ECC Surgeon: Steve Lacey MD Anesthesia: GLMA and other (Paracervical block) Was an Environmental Journalist used for this Procedure?: No Estimated blood loss (mL): 0 Pathology: other (Cervical cone, top-hat, Post cone ECC) Condition: stable Disposition: PACU (Home)
--- NOTE | 2022-10-31 13:48 | P.OP_ITS ---
Operative Note Operative Note Date of Service: 10/31/22 Narrative: Pre op diagnosis: Discrepancy between cytology (LSIL cannot rule out HGSIL) and pathology (LEON 1) Operation: Colposcopy, Loop electrical excision procedure cone, top hat endocervical excision, post cone ECC Postop diagnosis: the same Quantitative blood loss: 50 cc Surgeon: Steve Lacey MD, FACOG Transportation Design Engineer: None Pathology: Cervical cone, top-hat endo cervical excision, post cone endo cervical curettage Complications: none Anesthesia: GLMA and Para cervical block Procedure: The patient was put in a dorsal lithotomy position, scrubbed and draped in the usual sterile fashion. A speculum was inserted inside the patient's vagina. The cervix is assessed using the colposcope with acetic acid , the lesions were seen, and at least 1 cm of the squamocolumnar junction was observed. 20 x 5 mm size loop was selected based upon the diameter of the lesion. Lugol solution was used to outline the lesions and area of the transformation zone order to be removed 10 cc of xylocaine with epinephrine were injected submucosally into the surface of the cervix (ectocervix) at the 3, 6, 9, and 12 o'clock positions. The electrosurgical generator is set at 40 clements on blend 1. The loop is carefully passed simultaneously around and under the transformation zone, in order to ensure excising it making sure the lesion is at least 5 mm far from the specimen margins . The loop was allowed to glide through the cervix from one side to the other, allowing the cutting current to divide the tissue. Additional tissue was excised from this area with a smaller-diameter loop , endo cervical top-hat excision was performed An endo cervical curettage is performed following completion of excision, and hemostasis is obtained with a Ball electrode or regular tip cautery. At the end, Monsel's solution was applied to the cone bed. The patient tolerated the procedure well and, all instruments were taken out of the patient vaginal cavity, and the patient was transferred to the PACU in stable condition.
[2022-10-31] MEDS: oxyCODONE HCl Immed Release 5 MG TABLET 10 MG PO (15:01)
[2022-10-31] MEDS: ondansetron HCL 4 MG/2 ML VIAL IVPUSH (15:02)
== END 2022-10-31 15:44 | disposition home or self-care (01) ==
PROVIDERS: PCP Internal Medicine; Visit Provider Obstetrics & Gynecology
PROC: 0UBC7ZZ Excision of Cervix, Via Natural or Artificial Opening (ICD-10-PCS; CPT 57522; principal; 2022-10-31 13:40)
DX: N87.0 Mild cervical dysplasia (principal); R10.9 Unspecified abdominal pain; R94.6 Abnormal results of thyroid function studies; E04.9 Nontoxic goiter, unspecified; G47.00 Insomnia, unspecified; F32.A Depression, unspecified; R00.1 Bradycardia, unspecified; E66.9 Obesity, unspecified; Z68.30 Body mass index [BMI] 30.0-30.9, adult; Z79.899 Other long term (current) drug therapy; Z88.8 Allergy status to other drugs, medicaments and biological substances; Z87.442 Personal history of urinary calculi
CPT/HCPCS: 57461; 81025; 88305; 88307; J0131; J2250; J2405; J3010

== ENCOUNTER 2022-11-10 16:45 | Outpatient (REF) | payer OTHER, SELFPAY ==
[2022-11-10 18:07] LABS: Free T4 (Free Thyroxine) 1.07 ng/dL (0.71-1.85); Thyroid Stimulating Hormone 2.18 uIU/mL (0.32-4.0)
[2022-11-12 05:47] LABS: Prolactin 10.3 ng/mL
== END 2022-11-10 16:46 | disposition home or self-care (01) ==
LOC: HO.LAB 16:45
PROVIDERS: PCP Internal Medicine; Visit Provider Internal Medicine Endocrinology, Diabetes & Metabolism
DX: E06.3 Autoimmune thyroiditis (principal)
CPT/HCPCS: 36415; 84146; 84439; 84443

== ENCOUNTER → 2022-11-13 13:40 | Outpatient (BNVA) | payer OTHER, SELFPAY | PROVIDERS: PCP Internal Medicine; Visit Provider Obstetrics & Gynecology ==

== ENCOUNTER 2022-11-14 18:07 | Outpatient (REF) | payer OTHER, SELFPAY ==
[2022-11-14 18:28] LABS: Creatinine, mg/dL 109.52
[2022-11-15 00:51] LABS: Creatinine, 24Hr Urine 1.3 G/Day (1.0-2.0); Total Volume 24 Hour Urine 1225 mL
[2022-11-24 13:29] LABS: Cortisol Free, 24 Hr Urine 51.4 mcg/24 h (4.0-50.0); Creatinine, 24 Hr Urine 1.32 g/24 h (0.50-2.15); Total Volume, 24 Hr Urine 1225 mL
== END 2022-11-14 18:08 | disposition home or self-care (01) ==
LOC: HO.LNP 18:07
PROVIDERS: Visit Provider Internal Medicine Endocrinology, Diabetes & Metabolism
DX: E06.3 Autoimmune thyroiditis (principal)
CPT/HCPCS: 82530; 82570

== ENCOUNTER → 2022-11-24 14:56 | Outpatient (BNVA) | payer OTHER, SELFPAY | PROVIDERS: PCP Internal Medicine; Visit Provider Advanced Practice Midwife ==

== ENCOUNTER → 2022-11-25 14:56 | Outpatient (BNVA) | payer OTHER, SELFPAY | PROVIDERS: PCP Internal Medicine; Visit Provider Internal Medicine Endocrinology, Diabetes & Metabolism ==

== ENCOUNTER 2023-02-10 16:49 | Outpatient (AMB) | payer OTHER, SELFPAY ==
--- NOTE | 2023-02-10 16:54 | MHC.PC.OV ---
Vital Signs 02/10/23 16:57 Height 5 ft 8 in Weight 208 lb BMI 31.6 BP 122/80 Blood Pressure Location Lt brachial Position Sitting Intake Visit Reasons: Annual Physical Intake Note: Patient here for a physical exam Shadowgraph Scale Operator Required: No Accompanied by: Self / Same As Patient Allergies hydromorphone [From Dilaudid] Adverse Reaction (Intermediate, Verified 02/10/23 17:05) Nausea Medication List - Last Reconciled 02/10/23 by Alondra Martinez MD cholecalciferol (vitamin D3) 25 mcg (1/2 x 50 mcg (2,000 unit)) PO DAILY 90 days desog-e.estradiol/e.estradiol 0.15-0.02 mgx21 /0.01 mg x 5 1 tab PO DAILY levothyroxine 50 mcg PO DAILY Tobacco use date assessed: 02/10/23 Dental Screening Dental Screen Date: 02/10/23 Did you have a dental visit in the last 12 months?: Yes Did you have a dental problem in the last 6 months where you did not have access to dental care?: No Was dental information given to patient?: Patient has dentist HPI HPI Comments History of Present Illness Details This is a 37-year-old female with moderate major depression that comes for her physical exam. Pap smear done 2021 and LEEP done 2022. Complains of insomnia and depression and has a counselor in [place] that she will start seen. No chest pain or shortness of breath. PFSH Medical History Abdominal pain Depression Elevated TSH Goiter Insomnia Obesity Renal calculi Sinus bradycardia Vegan diet Surgical History Cyst on ear History of loop electrical excision procedure (LEEP) Family History (Updated 02/10/23 @ 17:09 by Alondra Martinez MD) Mother Lung cancer Mental health disorder Father Low blood pressure Hypothyroidism Family/Other Substance use disorder Social History (Updated 02/10/23 @ 17:10 by Alondra Martinez MD) Housing: Apartment Alcohol intake: current Alcohol intake frequency: does not drink Alcohol type: wine Patient Tobacco Use Status: Never used Tobacco e-Cigarette/Vaping Use: Never Used Second Hand Smoke Exposure: No service: No Current occupational status: employed Current occupational exposures/hazards: No Cognitive needs: No Hearing needs: No Vision needs: No Female Reproductive History Menstrual Age of Menarche: 14 Questionnaire PHQ-9 Over the last 2 weeks, how often have you been bothered by any of the following problems? 1. Little interest or pleasure in doing things: more than half the days 2. Feeling down, depressed, or hopeless: nearly every day 3. Trouble falling or staying asleep, or sleeping too much: nearly every day 4. Feeling tired or having little energy: nearly every day 5. Poor appetite or overeating: nearly every day 6. Feeling bad about yourself - or that you are a failure or have let yourself or your family down: nearly every day 7. Trouble concentrating on things, such as reading the newspaper or watching television: nearly every day 8. Moving or speaking so slowly that other people could have noticed. Or the opposite - being so fidgety or restless that you have been moving around a lot more than usual: not at all 9. Thoughts that you would be better off or of hurting yourself in some way: several days Total score: 21 Depression Screening Interpretation: Positive (no suicidal thoughts) Depression Screening Follow-up: Existing condition 14474 - PHQ-9 Billing: Yes Source: Developed by Drs. Erlin Salmon, Kavita Stewart, Fernando Sanchez and colleagues, with an educational hieu from [employer]. Thrive Questionnaire Date Thrive assessed: 02/10/23 I am a: Patient What is your living situation today?: I have a steady place to live Within the past 12 months, did the food you bought not last and you didn't have the money to get more?: Never true Within the past 12 months, did you worry whether your food would run out before you got money to buy more?: Never true Do you have trouble paying for medicines?: No Do you have trouble getting transportation to medical appointments?: No Do you have trouble paying your heating and electricity bill?: No Do you have trouble taking care of your child, family member or friend?: No Do you have trouble with day-to-day activities such as bathing, preparing meals, shopping, managing finances, etc.?: No Are you currently unemployed and looking for a job?: No Are you interested in more education?: No Please select the resources that you would like help with: None Currently or been in a relationship where the following occur: no concerns reported AUDIT C Alcohol Use Questionnaire (AUDIT-C) 1. How often do you have a drink containing alcohol?: Monthly or less 2. How many drinks containing alcohol do you have on a typical day when you are drinking?: 1 or 2 3. How often do you have six or more drinks on one occasion?: Never Total Score: 1 MAGGY-7 AMB Questionnaire MAGGY-7 Date MAGGY - 7 assessed: 02/10/23 Feeling nervous, anxious, or on edge: 3 = Nearly every day Not being able to stop or control worryin = Nearly every day Worrying too much about different things: 3 = Nearly every day Trouble relaxin = Nearly every day Being so restless that it is hard to sit still: 3 = Nearly every day Becoming easily annoyed or irritable: 3 = Nearly every day Feeling afraid as if something awful might happen: 3 = Nearly every day Total MAGGY-7 score (0-4 normal; 5-9 mild; 10-14 moderate; 15-21 severe): 21 Source: Developed by Drs. Erlin Salmon, Kavita Stewart, Fernando Sanchez and colleagues, with an educational hieu from [employer]. MAGGY-7 Assessment Billing MAGGY-7 Assessment Tool: MAGGY-7 Assessment 87217 Review of Systems Const All systems reviewed & are unremarkable except as noted in HPI and below Eyes Reports no additional complaints, Denies change in vision and Denies other visual disturbances Card Denies chest pain at rest, Denies chest pain with activity, Denies edema, Denies irregular heart rhythm, Denies claudication, Denies dyspnea, Denies dyspnea on exertion, Denies orthopnea, Denies paroxysmal nocturnal dyspnea and Denies slow heart rate Resp Denies cough, Denies dyspnea and Denies dyspnea on exertion GI Denies abdominal pain, Denies change in bowel habits, Denies excessive flatus, Denies nausea and Denies vomiting Denies urinary incontinence, Denies urinary hesitancy and Denies urinary urgency Musc Denies abnormal gait, Denies atrophy, Denies deformity and Denies limited range of motion Skin/Breast Denies bleeding lesions, Denies changing lesions and Denies rash Neuro Denies abnormal gait and Denies lack of coordination Psych Reports abnormal sleep pattern, Reports anxiety, Reports depression, Reports irritability and Reports anhedonia Physical exam (Primary Care) Vital Signs: Last Vital Signs BP 122/80 02/10/23 16:57 BMI result Body Mass Index 31.6 Tobacco/Smoking Status: Tobacco use Status Tobacco use date assessed 02/10/23 02/10/23 17:04 Patient Tobacco Use Status Never used Tobacco 02/10/23 17:10 e-Cigarette/Vaping Use Never Used 02/10/23 17:10 PHQ-9: PHQ-9 Score PHQ-9: Total score 21 02/10/23 17:11 Depression Screening Interpretation: Positive (no suicidal thoughts) Depression Screening Follow-up: Existing condition Thrive Assessment: Date of Thrive Assessment Date Thrive assessed 02/10/23 02/10/23 17:04 Currently or been in a relationship where the following occur: no concerns reported Const Orientation/consciousness: patient oriented x3 HENMT Head: Yes normal to inspection, Yes normocephalic and Yes atraumatic Ears: external ears normal Eyes General: appearance normal, both eyes and all related structures Eyelids: Yes eyelids normal Conjunctivae: conjunctivae normal Neck Neck: Yes normal visual inspection and Yes supple Resp Effort & Inspection: normal respiratory effort Auscultation: clear to auscultation bilaterally Cardio Jugular venous distension: no JVD Rate: regular rate Rhythm: regular rhythm Heart sounds: S1 normal heart sound present and S2 normal heart sound present GI Inspection: Yes normal to inspection Palpation (GI): Soft to palpation and nontender Auscultation: normal bowel sounds Skin General skin exam: no rashes or lesions noted Neuro General: patient oriented x3 and no focal motor deficits Extrem General: Yes full ROM Psych Appearance: grossly normal Assessment and Plan Assessment & Plan (1) Physical exam: Code(s): Z00.00 - Encounter for general adult medical examination without abnormal findings Plan: Repeat in a year (2) Moderate major depression: Code(s): F32.1 - Major depressive disorder, single episode, moderate Plan: Start trazodone. Start counseling. Orders: Orders Vitamin B12 and Folate Today E53.8 - Deficiency of other specified B group vitamins Thyroid Stimulating Hormone Today E06.3 - Autoimmune thyroiditis Vitamin D 25-OH Total Today E55.9 - Vitamin D deficiency, unspecified Cyclic Citrullinated Peptide Today M25.50 - Pain in unspecified joint Erythrocyte Sedimentation Rate Today M25.50 - Pain in unspecified joint Rheumatoid Factor Today M25.50 - Pain in unspecified joint CRP High Sensitivity Today M25.50 - Pain in unspecified joint ALONDRA Reflex Titer and Pattern Today M25.50 - Pain in unspecified joint Anti DNA DS Antibody Today M25.50 - Pain in unspecified joint Comprehensive Met. Panel Today M25.50 - Pain in unspecified joint Medications: New trazodone 50 mg PO BEDTIME 30 days PRN 30 tabs 1RF sleep Coding Level of Care Code Est Pt Prev Care 18-39y(25031) Diagnoses Physical exam Z00.00 Moderate major depression F32.1 Additional Codes MAGGY-7 Assessment Billing - MAGGY-7 Assessment Tool: MAGGY-7 Assessment 61379 ([id number]) Time Spent (min) 32
[2023-02-10 16:57] VITALS: BP 122/80; BMI 31.6
== END 2023-02-10 17:36 | disposition home or self-care (01) ==
PROVIDERS: Visit Provider Internal Medicine
DX: Z00.00 Encounter for general adult medical examination without abnormal findings (principal); F32.1 Major depressive disorder, single episode, moderate
CPT/HCPCS: 99395

== ENCOUNTER 2023-02-11 14:58 | Outpatient (REF) | payer OTHER, SELFPAY ==
[2023-02-11 16:08] LABS: Alanine Aminotransferase 9 U/L (0-31); Albumin Level 3.8 g/dL (3.5-5.0); Alkaline Phosphatase 51 U/L (39-117); Anion Gap 14 (12-20); Aspartate Amino Transferase 12 U/L (5-31); Bilirubin Total 0.4 mg/dL (0.0-1.0); Blood Urea Nitrogen 11 mg/dL (9-16); Calcium 9.3 mg/dL (8.4-10.2); Carbon Dioxide 23 mmol/L (22-29); Chloride 107 mmol/L (96-108); Estimated Glomerular Filt Rate > 60; Glucose Random 130 mg/dL (60-115); Potassium 4.6 mmol/L (3.3-5.1); Sodium 139 mmol/L (135-145); Total Protein 6.9 g/dL (6.5-8.0)
[2023-02-11 16:16] LABS: Rheumatoid Factor < 13.0 IU/mL (<15.0)
[2023-02-11 16:25] LABS: Erythrocyte Sedimentation Rate 7 MM/HR (0-20); Thyroid Stimulating Hormone 1.81 uIU/mL (0.32-4.0); Vitamin D 25-OH Total 40.8 ng/mL (>30)
[2023-02-11 16:38] LABS: Folate 14.7 ng/mL (> or = 4.0); Vitamin B12 538 pg/mL (200-900)
[2023-02-13 19:58] LABS: CRP High Sensitivity 4.3 mg/L
[2023-02-17 15:43] LABS: Cyclic Citrullinated Peptide <16 UNITS
[2023-02-17 20:54] LABS: Anti DNA DS Antibody <1 IU/mL
[2023-02-20 15:49] LABS: Anti Nuclear Antibody Screen POSITIVE (NEGATIVE); Anti Nuclear Antibody Titer 1:40 titer
== END 2023-02-11 14:59 | disposition home or self-care (01) ==
LOC: HO.LAB 14:58
PROVIDERS: PCP Internal Medicine; Visit Provider Internal Medicine
DX: E06.3 Autoimmune thyroiditis (principal); M25.50 Pain in unspecified joint; E53.8 Deficiency of other specified B group vitamins; E55.9 Vitamin D deficiency, unspecified
CPT/HCPCS: 36415; 80053; 82306; 82607; 82746; 84443; 85652; 86038; 86039; 86141; 86200; 86225; 86431

== ENCOUNTER 2023-05-15 15:03 | Outpatient (REF) | payer OTHER, SELFPAY ==
--- NOTE | ~2023-05-15 | XR_ITS ---
EXAMINATION: XR KNEES, BILATERAL XR HAND, BILATERAL CLINICAL INFORMATION: Rheumatoid arthritis. COMPARISON: None available. TECHNIQUE: 3 views of each knee. 4 views of each hand. FINDINGS: LEFT HAND: Mild bone mineralization is normal. No displaced fracture. Mild degenerative changes in several distal interphalangeal joints with hypertrophic change. Mild degenerative changes in the 1st carpometacarpal joint with joint space narrowing and hypertrophic change. RIGHT HAND: Mild bone mineralization is normal. No displaced fracture. Mild degenerative changes in several distal interphalangeal joints with hypertrophic change. Mild degenerative changes in the 1st carpometacarpal joint with joint space narrowing and hypertrophic change. LEFT KNEE: No significant joint effusion. Tiny medial marginal and posterior patellar osteophytes. Mild medial joint space narrowing. RIGHT KNEE: No significant joint effusion. Tiny medial marginal and posterior patellar osteophytes. Mild medial joint space narrowing. Oval sclerotic focus overlies the anterior distal diametaphysis of the right femur on the lateral view, evaluation limited due to patient rotation, possibly representing a bone island. XR/XR hand wrist LT IMPRESSION: Mild degenerative changes in the bilateral hands and feet as detailed above. No displaced fracture. MRI could be considered for further evaluation if there is clinical concern for fracture or other underlying pathology as MRI is more sensitive for detection.
--- NOTE | ~2023-05-15 | XR_ITS ---
EXAMINATION: XR KNEES, BILATERAL XR HAND, BILATERAL CLINICAL INFORMATION: Rheumatoid arthritis. COMPARISON: None available. TECHNIQUE: 3 views of each knee. 4 views of each hand. FINDINGS: LEFT HAND: Mild bone mineralization is normal. No displaced fracture. Mild degenerative changes in several distal interphalangeal joints with hypertrophic change. Mild degenerative changes in the 1st carpometacarpal joint with joint space narrowing and hypertrophic change. RIGHT HAND: Mild bone mineralization is normal. No displaced fracture. Mild degenerative changes in several distal interphalangeal joints with hypertrophic change. Mild degenerative changes in the 1st carpometacarpal joint with joint space narrowing and hypertrophic change. LEFT KNEE: No significant joint effusion. Tiny medial marginal and posterior patellar osteophytes. Mild medial joint space narrowing. RIGHT KNEE: No significant joint effusion. Tiny medial marginal and posterior patellar osteophytes. Mild medial joint space narrowing. Oval sclerotic focus overlies the anterior distal diametaphysis of the right femur on the lateral view, evaluation limited due to patient rotation, possibly representing a bone island. XR/XR hand wrist RT IMPRESSION: Mild degenerative changes in the bilateral hands and feet as detailed above. No displaced fracture. MRI could be considered for further evaluation if there is clinical concern for fracture or other underlying pathology as MRI is more sensitive for detection.
--- NOTE | ~2023-05-15 | XR_ITS ---
EXAMINATION: XR KNEES, BILATERAL XR HAND, BILATERAL CLINICAL INFORMATION: Rheumatoid arthritis. COMPARISON: None available. TECHNIQUE: 3 views of each knee. 4 views of each hand. FINDINGS: LEFT HAND: Mild bone mineralization is normal. No displaced fracture. Mild degenerative changes in several distal interphalangeal joints with hypertrophic change. Mild degenerative changes in the 1st carpometacarpal joint with joint space narrowing and hypertrophic change. RIGHT HAND: Mild bone mineralization is normal. No displaced fracture. Mild degenerative changes in several distal interphalangeal joints with hypertrophic change. Mild degenerative changes in the 1st carpometacarpal joint with joint space narrowing and hypertrophic change. LEFT KNEE: No significant joint effusion. Tiny medial marginal and posterior patellar osteophytes. Mild medial joint space narrowing. RIGHT KNEE: No significant joint effusion. Tiny medial marginal and posterior patellar osteophytes. Mild medial joint space narrowing. Oval sclerotic focus overlies the anterior distal diametaphysis of the right femur on the lateral view, evaluation limited due to patient rotation, possibly representing a bone island. XR/XR knee RT 3V IMPRESSION: Mild degenerative changes in the bilateral hands and feet as detailed above. No displaced fracture. MRI could be considered for further evaluation if there is clinical concern for fracture or other underlying pathology as MRI is more sensitive for detection.
--- NOTE | ~2023-05-15 | XR_ITS ---
EXAMINATION: XR KNEES, BILATERAL XR HAND, BILATERAL CLINICAL INFORMATION: Rheumatoid arthritis. COMPARISON: None available. TECHNIQUE: 3 views of each knee. 4 views of each hand. FINDINGS: LEFT HAND: Mild bone mineralization is normal. No displaced fracture. Mild degenerative changes in several distal interphalangeal joints with hypertrophic change. Mild degenerative changes in the 1st carpometacarpal joint with joint space narrowing and hypertrophic change. RIGHT HAND: Mild bone mineralization is normal. No displaced fracture. Mild degenerative changes in several distal interphalangeal joints with hypertrophic change. Mild degenerative changes in the 1st carpometacarpal joint with joint space narrowing and hypertrophic change. LEFT KNEE: No significant joint effusion. Tiny medial marginal and posterior patellar osteophytes. Mild medial joint space narrowing. RIGHT KNEE: No significant joint effusion. Tiny medial marginal and posterior patellar osteophytes. Mild medial joint space narrowing. Oval sclerotic focus overlies the anterior distal diametaphysis of the right femur on the lateral view, evaluation limited due to patient rotation, possibly representing a bone island. XR/XR knee LT 3V IMPRESSION: Mild degenerative changes in the bilateral hands and feet as detailed above. No displaced fracture. MRI could be considered for further evaluation if there is clinical concern for fracture or other underlying pathology as MRI is more sensitive for detection.
[2023-05-15 16:35] LABS: MANUAL DIFF FLAG NO
[2023-05-15 16:59] LABS: Basophils Percent Auto 0.4 % (0-2); Eosinophils Absolute Auto 0.1 X10*3/uL (0.0-0.4); Eosinophils Percent Auto 2.5 % (0-4); Hematocrit 38.5 % (37.0-47.0); Hemoglobin 12.9 g/dl (12.0-16.0); Imm Gran Abs Auto 0.01 X10*3/uL (0.00-0.03); Imm Gran Pct Auto 0.2 % (0.0-0.4); Lymphocytes Absolute Auto 1.5 X10*3/uL (1.2-4.9); Lymphocytes Percent Auto 32.2 % (20-40); Mean Corpuscular HGB Conc 33.5 g/dl (31.0-35.0); Mean Corpuscular Hemoglobin 31.3 pg (27.0-33.0); Mean Corpuscular Volume 93.4 fL (80.0-98.0); Mean Platelet Volume 11.7 fL (9.4-12.3); Monocytes Absolute Auto 0.4 X10*3/uL (0.1-1.2); Monocytes Percent Auto 9.2 % (2-11); Neutrophils Absolute Auto 2.7 x10*3/uL (2.0-8.3); Neutrophils Percent Auto 55.5 % (45-73); Platelet Count 192 X10*3/uL (160-400); Red Blood Count 4.12 X10*6/uL (4.20-5.50); Red Cell Distribution Width 12.2 % (11.0-16.0); White Blood Count 4.8 X10*3/uL (4.8-10.8)
[2023-05-15 17:24] LABS: Alanine Aminotransferase 11 U/L (0-31); Albumin Level 4.1 g/dL (3.5-5.0); Alkaline Phosphatase 51 U/L (39-117); Anion Gap 11 (12-20); Aspartate Amino Transferase 14 U/L (5-31); Bilirubin Total 0.3 mg/dL (0.0-1.0); Blood Urea Nitrogen 12 mg/dL (9-16); C Reactive Protein 0.62 mg/dL (< or = 0.50); Calcium 9.3 mg/dL (8.4-10.2); Carbon Dioxide 24 mmol/L (22-29); Chloride 108 mmol/L (96-108); Estimated Glomerular Filt Rate > 60; Glucose Random 97 mg/dL (60-115); Potassium 4.1 mmol/L (3.3-5.1); Sodium 139 mmol/L (135-145); Total Protein 7.2 g/dL (6.5-8.0)
[2023-05-15 18:09] LABS: Erythrocyte Sedimentation Rate 10 MM/HR (0-20)
[2023-05-18 05:42] LABS: HBc Num1 0.35 S/CO (0.00-0.79); HBsAGNum1 0.38 S/CO (0.00-0.99); Hepatitis A Antibody IgM 0.23 Index (0-0.79); Hepatitis B Core Antibody Nonreactive (Nonreactive); Hepatitis B Surface Antigen Negative (Negative); ~HepC Num1 0.05 S/CO (0.00-0.79); ~Hepatitis A Antibody IgM Nonreactive (Nonreactive); ~Hepatitis B Surface Antibody REACTIVE (Nonreactive); ~Hepatitis C Antibody Nonreactive (Nonreactive)
[2023-05-18 23:24] LABS: Prot Elec - Albumin 3.9 g/dL (3.8-4.8); Prot Elec - Alpha1 0.3 g/dL (0.2-0.3); Prot Elec - Alpha2 0.7 g/dL (0.5-0.9); Prot Elec - Beta 1 0.4 g/dL (0.4-0.6); Prot Elec - Beta 2 0.3 g/dL (0.2-0.5); Prot Elec - Gamma 1.1 g/dL (0.8-1.7); Prot Elec - Total Protein 6.7 g/dL (6.1-8.1)
[2023-05-19 16:39] LABS: IgA 229 mg/dL (47-310); IgG 1310 mg/dL (600-1640); IgM 83 mg/dL (50-300)
== END 2023-05-15 15:04 | disposition home or self-care (01) ==
LOC: HO.XRAY 15:03
PROVIDERS: PCP Internal Medicine; Visit Provider Student in an Organized Health Care Education/Training Program
DX: Z11.59 Encounter for screening for other viral diseases (principal); M06.9 Rheumatoid arthritis, unspecified; Z72.89 Other problems related to lifestyle; M25.50 Pain in unspecified joint
CPT/HCPCS: 36415; 73110; 73130; 73562; 80053; 82784; 84165; 85025; 85652; 86140; 86334; 86704; 86706; 86709; 86803; 87340

== ENCOUNTER 2023-05-15 15:03 | Outpatient (AMB) | payer OTHER, SELFPAY ==
[2023-05-15 15:20] VITALS: BP 118/68; PULSE 58; TEMP 36.7; O2SAT 98; BMI 32.3
--- NOTE | 2023-05-15 15:20 | A.OFFVIS_ITS ---
Intake Vital Signs 05/15/23 15:20 Height 5 ft 8 in Weight 212 lb 11.937 oz BMI 32.3 BP 118/68 Blood Pressure Location Rt brachial Position Sitting Pulse 58 Pulse Source Pulse Oximeter Temp 98.1 F Temp Source Skin Pulse Oximetry (%) 98 Intake Visit Reasons: Elev CRP Intake Note: New pt presents today for consult to discuss elevated lab result. C/o joint and muscle pain. Pain started approx 1.5 years ago Greens Keeper Required: No Accompanied by: Self / Same As Patient Allergies hydromorphone [From Dilaudid] Adverse Reaction (Intermediate, Verified 05/15/23 15:27) Nausea Medication List - Last Reconciled 05/15/23 by Cheyenne Cantor MD cholecalciferol (vitamin D3) 25 mcg (1/2 x 50 mcg (2,000 unit)) PO DAILY 90 days cyclobenzaprine 5 mg PO Q8H PRN desog-e.estradiol/e.estradiol 0.15-0.02 mgx21 /0.01 mg x 5 1 tab PO DAILY levothyroxine 50 mcg PO DAILY trazodone 50 mg PO BEDTIME PRN 30 days HPI HPI Comments History of Present Illness Details This is a 37-year-old female who presents for evaluation of multiple joint pain. The condition started more than a year ago. Patient works in a warehouse. She stated that she would get progressively worsening bilateral hand pain and weakness. Inability to do her work. She did not have any significant tingling numbness of her fingers. She went to urgent care once and was told she has bilateral carpal tunnel syndrome and prescribed wrist splints. She stated that the wrist splints helped her pain as she was not working as much. She was also ask to do light duty work. She was eventually evaluated by [facility] and had bilateral upper extremity EMG/NCV and was told that she does not have carpal tunnel syndrome. Patient states that she gets intermittent swelling of her hands. She also gets pain and swelling above her knees and in her thighs anteriorly. Worse with going down the stairs. She is unaware of any autoimmune rheumatic disease in the family. She denies any history of DVT/PE. [facility] Medical History (Updated 05/15/23 @ 17:13 by Cheyenne Cantor MD) Vegan diet Goiter Elevated TSH Sinus bradycardia Renal calculi Abdominal pain Obesity Depression Insomnia Surgical History History of loop electrical excision procedure (LEEP) Cyst on ear Family History Mother Lung cancer Mental health disorder Father Low blood pressure Hypothyroidism Osteoarthritis of both knees Family/Other Substance use disorder Social History Housing: Apartment Alcohol intake: current Alcohol intake frequency: holidays/special occasions only Alcohol type: wine Patient Tobacco Use Status: Never used Tobacco e-Cigarette/Vaping Use: Never Used Second Hand Smoke Exposure: No Substance Use Type: Marijuana Substance Use Frequency: Occasionally service: No Current occupational status: employed Current occupation: [employer] Current occupational exposures/hazards: No Cognitive needs: No Hearing needs: No Vision needs: No Female Reproductive History Menstrual Age of Menarche: 14 Total pregnancies: 0 Review of Systems Const Reports fatigue, Reports fever(s), Reports headache(s) and Reports weakness Eyes Reports dry eyes, Reports itchy eyes and Reports eye pain ENT Reports dysphagia, Reports dizziness, Reports dry mouth, Reports headache(s) and Reports sore throat Card Reports chest pain and Reports dyspnea Resp Reports dyspnea GI Reports dysphagia and Reports nausea Reports difficulty voiding, Reports nocturia and Reports vaginal dryness Skin/Breast Reports alopecia, Reports pruritus, Reports rash and Reports unusual bruising Neuro Reports dizziness, Reports headache(s) and Reports weakness Psych Reports abnormal sleep pattern, Reports anxiety and Reports depression Endo Reports fatigue and Reports polydipsia Aller/Immun Reports itchy eyes Physical Exam Vital Signs: Last Vital Signs Temp 98.1 F 05/15/23 15:20 Pulse 58 05/15/23 15:20 BP 118/68 05/15/23 15:20 Pulse Ox 98 05/15/23 15:20 BMI result Body Mass Index 32.3 Const General: cooperative, healthy appearing and comfortable Nutritional Appearance: obese Orientation/consciousness: patient oriented x3 Limitations: no limitations HEENT Head: Yes normocephalic and Yes atraumatic Resp Effort & Inspection: normal respiratory effort and able to speak in complete sentences Auscultation: clear to auscultation bilaterally Cardio Rate: regular rate Skin General skin exam: no rashes or lesions noted Neuro General: patient oriented x3 Extrem Other: No active synovitis Normal nailfold capillaroscopy Multiple myofascial tender point Assessment & Plan Assessment & Plan (1) Polyarthralgia: Code(s): M25.50 - Pain in unspecified joint Plan: This is a 37-year-old female who presents for evaluation of diffuse joint pain. Will order comprehensive serology to screen for underlying autoimmune rheumatic disease. Check x-rays of involved joints. Follow-up in 2-3 weeks Plan I spent 46 minutes reviewing patient's chart, evaluating patient, ordering diagnostic workup, counseling patient and documenting in the chart Orders: Orders Complete Blood Count Auto Diff Today M06.9 - Rheumatoid arthritis, unspecified Comprehensive Met. Panel Today M06.9 - Rheumatoid arthritis, unspecified C Reactive Protein Today M06.9 - Rheumatoid arthritis, unspecified XR hand wrist RT Today M06.9 - Rheumatoid arthritis, unspecified XR knee standing BI Today M06.9 - Rheumatoid arthritis, unspecified Erythrocyte Sedimentation Rate Today M06.9 - Rheumatoid arthritis, unspecified Immunofixation Pnl, Serum Today M06.9 - Rheumatoid arthritis, unspecified Protein Electrophoresis, Serum Today M06.9 - Rheumatoid arthritis, unspecified Hepatitis A,B,C Profile Today Z11.59 - Encounter for screening for other viral diseases XR hand wrist LT Today M06.9 - Rheumatoid arthritis, unspecified XR knee LT 3V Today M06.9 - Rheumatoid arthritis, unspecified XR knee RT 3V Today M06.9 - Rheumatoid arthritis, unspecified Quality Reporting (2019) Adult ([facility] 138/09/03/68) Smoking risk assessment performed?: Yes Patient Tobacco Use Status: Never used Tobacco Coding Level of Care Code New Pt Level 4 (15489) Diagnoses Polyarthralgia M25.50
== END 2023-05-15 15:55 | disposition home or self-care (01) ==
PROVIDERS: PCP Internal Medicine; Visit Provider Student in an Organized Health Care Education/Training Program
DX: M25.50 Pain in unspecified joint (principal)
CPT/HCPCS: 99204